=== PATIENT | male | born 1965 | race Native Hawaiian/Other Pacific Islander ===

== ENCOUNTER 2016-12-12 15:54 | Outpatient (CLI) | payer OTHER ==
[~2016-12-12 15:54] MED LIST: ALPR1TAB61 PO; BUSPIRONE10 MG PO; CLON0.1T16 PO; DULO30CA OR; HYDR-2748 PO; LISI10TA11 PO; METO25TA4 OR; METO25TA4 PO; SEROPHENE50 MG OR
== END 2016-12-12 19:39 | disposition home or self-care (01) ==
LOC: MRI 15:54
DX: G62.9 Polyneuropathy, unspecified (principal)

== ENCOUNTER 2019-09-02 07:51 | Outpatient (CLI) | payer OTHER | END 2019-09-02 19:18 | disposition home or self-care (01) | LOC: CT 07:51 | DX: R10.11 Right upper quadrant pain (principal) | CPT/HCPCS: 36415; 82565; 84520; Q9963 ==

== ENCOUNTER 2020-08-24 13:42 | Outpatient (CLI) | payer OTHER | END 2020-08-24 23:22 | disposition home or self-care (01) | LOC: CT 13:42 | PROVIDERS: ATTEND Student in an Organized Health Care Education/Training Program | DX: R06.02 Shortness of breath (principal); I10 Essential (primary) hypertension; J45.909 Unspecified asthma, uncomplicated; K21.9 Gastro-esophageal reflux disease without esophagitis; M51.36 Other intervertebral disc degeneration, lumbar region; M51.26 Other intervertebral disc displacement, lumbar region; G89.29 Other chronic pain; M53.86 Other specified dorsopathies, lumbar region; Z87.19 Personal history of other diseases of the digestive system; R20.2 Paresthesia of skin ==

== ENCOUNTER 2021-11-15 13:02 | Outpatient (CLI) | payer OTHER | END 2021-11-15 19:02 | disposition home or self-care (01) | LOC: MRI 13:02 | PROVIDERS: ATTEND Anesthesiology Pain Medicine | DX: M54.16 Radiculopathy, lumbar region (principal); M54.50 Low back pain, unspecified ==

== ENCOUNTER 2022-11-07 18:47 | Emergency (ER) | payer OTHER ==
[~2022-11-07] VITALS: Ht 180.3 cm; Wt 81.6 kg
[2022-11-07 18:50] VITALS: TEMP 97.2
[2022-11-07 19:25] LABS: PLATELET COUNT 247 K/uL (142-355)
[2022-11-07 19:45] LABS: POTASSIUM 4.1 mmol/L (3.6-5.2)
[2022-11-07 22:05] VITALS: BP 123/72
== END 2022-11-07 22:05 | disposition home or self-care (01) ==
LOC: ED 18:47
PROVIDERS: Emergency Medicine Emergency Medical Services
DX: E86.0 Dehydration (principal); H65.191 Other acute nonsuppurative otitis media, right ear; A08.39 Other viral enteritis
CPT/HCPCS: 36415; 80053; 82150; 83690; 83735; 84484; 85027; 93005; 96365; 96375; 99284; J0696; J2930

== ENCOUNTER 2022-11-09 17:08 | Emergency (ER) | payer OTHER ==
[~2022-11-09] VITALS: Ht 180.3 cm; Wt 81.6 kg
[2022-11-09 17:10] VITALS: BP 129/78; TEMP 99.7
== END 2022-11-09 20:22 | disposition home or self-care (01) ==
LOC: ED 17:08
PROC: 2W3QX1Z Immobilization of Right Lower Leg using Splint (ICD-10-PCS; principal; 2022-11-09)
DX: S92.214A Nondisplaced fracture of cuboid bone of right foot, initial encounter for closed fracture (principal); W11.XXXA Fall on and from ladder, initial encounter; Y92.89 Other specified places as the place of occurrence of the external cause
CPT/HCPCS: 36415; 90471; 90715; 96361; 96374; 96375; 96376; 99284; J1170; J2405

== ENCOUNTER 2022-12-09 09:45 | Outpatient (CLI) | payer OTHER | END 2022-12-09 22:50 | disposition home or self-care (01) | LOC: MRI 09:45 | PROVIDERS: ATTEND Pain Medicine Interventional Pain Medicine | DX: M54.17 Radiculopathy, lumbosacral region (principal) ==

== ENCOUNTER 2023-01-30 14:05 | Outpatient (CLI) | payer OTHER | END 2023-01-30 19:00 | disposition home or self-care (01) | LOC: RAD 14:05 | PROVIDERS: ATTEND Physician Assistant | DX: R07.89 Other chest pain (principal) ==